=== PATIENT | female | born 1980 | race Two or more races ===

== ENCOUNTER 2017-07-20 12:38 | Inpatient (IN) | payer BC, OTHER ==
[2017-07-20 14:54] VITALS: BMI 33.6
--- NOTE | 2017-07-20 14:55 | HP ---
Admission ROS [facility] Chief Complaint: i am here for rehab from percocet Allergies/Adverse Reactions: Allergies Allergy/AdvReac Type Severity Reaction Status Date / Time No Known Allergies Allergy Verified 12/29/14 13:22 History of Present Illness: this 37 years old female with percocet dependence,seeking rehab,completed detox from 07/14/17 to 07/20/17,at [facility] history of herniated lumbar disc,degenerative disease of right knee bipolar disorder,manic depressive disorder on med nicotine dependence no significant period of sobriety neuropathy , Exam Limitations: No Limitations - Ebola screening Have you traveled outside of the country in the last 21 days: No Have you had contact with anyone from an Ebola affected area: No Do you have a fever: No - Review of Systems Constitutional: No Symptoms Reported EENT: reports: No Symptoms Reported Respiratory: reports: No Symptoms reported Cardiac: reports: No Symptoms Reported GI: reports: No Symptoms Reported : reports: No Symptoms Reported Musculoskeletal: reports: Back Pain Integumentary: reports: No Symptoms Reported Neuro: reports: No Symptoms reported, See HPI, Headache Endocrine: reports: No Symptoms Reported Hematology: reports: No Symptoms Reported Psychiatric: reports: No Sypmtoms Reported, Judgement Intact, Mood/Affect Appropiate, Orientated x3 (bipolar disorder manic depressive) Patient History - Patient Medical History Hx Anemia: Yes (on no medication) Hx Asthma: No Hx Chronic Obstructive Pulmonary Disease (COPD): No Hx Cancer: No Hx Cardiac Disorders: No Hx Congestive Heart Failure: No Hx Hypertension: No Hx Hypercholesterolemia: No Hx Pacemaker: No HX Cerebrovascular Accident: No Hx Seizures: No Hx Dementia: No Hx Diabetes: No Hx Gastrointestinal Disorders: No Hx Liver Disease: No Hx Genitourinary Disorders: No Hx Sexually Transmitted Disorders: No Hx Renal Disease (ESRD): No Hx Thyroid Disease: No Hx Human Immunodeficiency Virus (HIV): No Hx Hepatitis C: No Hx Depression: Yes Hx Suicide Attempt: Yes (x2 overdose) Hx Bipolar Disorder: Yes Hx Schizophrenia: No Other Medical History: manic depressive,no suicidal,no homicidal - Patient Surgical History Past Surgical History: Yes Hx Neurologic Surgery: No Hx Cataract Extraction: No Hx Cardiac Surgery: No Hx Lung Surgery: No Hx Breast Surgery: No Hx Breast Biopsy: No Hx Abdominal Surgery: No Hx Appendectomy: No Hx Cholecystectomy: No Hx Genitourinary Surgery: No Hx Section: No Hx Orthopedic Surgery: Yes (right ankle in 2014 (fall)) Other Surgical History: tubal ligation in 2012 - PPD History Previous Implant?: Yes Documented Results: Negative w/o proof Date: 12/31/14 Results: 0MM PPD to be Administered?: No - Reproductive History Patient is a Female of Child Bearing Age (11 -55 yrs old): Yes Last Menstrual Period: 07/10/17 Patient : No - Smoking Cessation Smoking history: Current every day smoker Have you smoked in the past 12 months: Yes Aproximately how many cigarettes per day: 20 Hx Chewing Tobacco Use: No Initiated information on smoking cessation: Yes 'Breaking Loose' booklet given: 07/20/17 - Substance & Tx. History Hx Alcohol Use: No Hx Substance Use: Yes (percocet) Substance Use Type: Opiates Hx Substance Use Treatment: Yes ([facility] to 07/20/17) - Substances Abused PERCOCET Route: Oral Frequency: Daily Amount used: 10-15 (10/325MG) Age of first use: 22 Date of Last Use: 07/12/17 Family Disease History - Family Disease History Family Disease History: Other: Mother (heroin dependence,) Admission Physical Exam [facility] - Vital Signs Vital Signs: Vital Signs Temperature 98.6 F 07/20/17 14:49 Pulse Rate 87 07/20/17 14:49 Respiratory Rate 16 07/20/17 14:49 Blood Pressure 101/56 07/20/17 14:49 O2 Sat by Pulse Oximetry (%) - Physical General Appearance: Yes: No Apparent Distress HEENTM: Yes: Normal ENT Inspection, KATTY, Pharynx Normal Respiratory: Yes: Lungs Clear, Normal Breath Sounds, No Respiratory Distress Neck: Yes: Within Normal Limits, Supple, Trachea in good position Breast: Yes: Breast Exam Deferred Cardiology: Yes: Within Normal Limits, Regular Rhythm, Regular Rate, S1, S2 Abdominal: Yes: Within Normal Limits, Normal Bowel Sounds, Non Tender, Soft Genitourinary: Yes: Within Normal Limits Back: Yes: Within Normal Limits Musculoskeletal: Yes: Within Normal Limits, full range of Motion Extremities: Yes: Within Normal Limits Neurological: Yes: oxygen tank filler II-XII NML intact, Fully Oriented, Alert, Motor Strength 5/5 Integumentary: Yes: Within Normal Limits Lymphatic: Yes: Within Normal Limits - Diagnostic (1) Opioid dependence Current Visit: Yes Status: Acute (2) Nicotine dependence Current Visit: No Status: Chronic Qualifiers: Nicotine product type: cigarettes Substance use status: unspecified nicotine-induced disorder Qualified Code(s): F17.219 - Nicotine dependence, cigarettes, with unspecified nicotine-induced disorders (3) Herniated lumbar intervertebral disc Current Visit: Yes Status: Acute (4) Bipolar 2 disorder Current Visit: Yes Status: Acute (5) Manic depressive disorder Current Visit: Yes Status: Acute (6) Neuropathy Current Visit: Yes Status: Acute Cleared for Admission [facility] - Detox or Rehab Claeared for Rehab Admission: Yes S Breath Alcohol Content Breath Alcohol Content: 0 Inpatient Rehab Admission - Initial Determination Are CD services needed?: Yes Free of communicable disease: Yes Not in need of hospitalization: Yes - Rehab Admission Criteria Previous failed treatment: Yes Poor recovery environment: Yes Comorbidities: Yes Lacks judgement: No Patient is meeting Inpatient Rehab admission criteria:: Yes
[2017-07-20] MEDS ORDERED: NICOTINE POLACRILEX 2 MG GUM BUC PRN (15:10)
[2017-07-20] MEDS ORDERED: guaiFENesin/D-METHORPHAN HB 10 ML UNIT-DOSE CUPS PO PRN (15:10)
[2017-07-20] MEDS ORDERED: P-EPHED 60MG/TRIPROLIDI 2.5MG TABLET PO PRN (15:10)
[2017-07-20] MEDS ORDERED: LOPERAMIDE HCL 2 MG CAPSULE PO PRN (15:10)
[2017-07-20] MEDS ORDERED: MENTHOL/PHENOL 1 EACH UD MM PRN (15:10)
[2017-07-20] MEDS ORDERED: IBUPROFEN 400 MG TABLET (FP) PO PRN (15:10)
[2017-07-20] MEDS ORDERED: ACETAMINOPHEN 325 MG TABLET (FP) PO PRN (15:10)
[2017-07-20] MEDS ORDERED: MAG HYDROX/AL HYDROX/SIMETH 30 ML UNIT-DOSE CUP PO PRN (15:10)
[2017-07-20] MEDS ORDERED: MAGNESIUM CITRATE 300 ML BOTTLE PO PRN (15:10)
[2017-07-20] MEDS ORDERED: MAGNESIUM HYDROX 2400MG/30ML ORAL SUSPENSION 30 ML CUP PO PRN (15:10)
[2017-07-20] MEDS ORDERED: GABAPENTIN 300 MG CAPSULE (FP) PO ONE (15:30)
[2017-07-20] MEDS: NICOTINE 21 MG/24 HOURS TOPICAL PATCH TD SCH (17:02)
[2017-07-20] MEDS: GABAPENTIN 300 MG CAPSULE (FP) PO SCH (21:39)
[2017-07-20] MEDS: QUEtiapine FUMARATE 300 MG TABLET PO SCH (21:40)
[2017-07-20] MEDS: THIAMINE HCL 100 MG TABLET (FP) PO SCH (21:40)
[2017-07-20] MEDS: LITHIUM CARBONATE 300 MG CAPSULE (FP) PO SCH (21:40)
[2017-07-21] MEDS: LITHIUM CARBONATE 300 MG CAPSULE (FP) PO SCH ×3 (06:42→21:31)
[2017-07-21] MEDS: GABAPENTIN 300 MG CAPSULE (FP) PO SCH ×3 (06:42→21:31)
[2017-07-21] MEDS: hydrOXYzine PAMOATE 50 MG CAPSULE (FP) PO PRN ×2 (06:43→18:27)
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
[2017-07-21] MEDS: PRENATAL VITAMINS W/ FOLIC ACID TABLET (FP) PO SCH (10:06)
[2017-07-21] MEDS: NICOTINE 21 MG/24 HOURS TOPICAL PATCH TD SCH (10:07)
--- NOTE | 2017-07-21 10:19 | EKG ---
Test Reason : Blood Pressure : / mmHG Vent. Rate : 064 BPM Atrial Rate : 064 BPM P-R Int : 172 ms QRS Dur : 088 ms QT Int : 434 ms P-R-T Axes : 035 051 033 degrees QTc Int : 447 ms NORMAL SINUS RHYTHM NORMAL ECG NO PREVIOUS ECGS AVAILABLE Confirmed by SAMMIE MENDIETA MD ([id number]) on 07/21/2017 10:19:00 AM Referred By: Confirmed By:SAMMIE MENDIETA MD
[2017-07-21 15:38] LABS: HEMATOCRIT 36.6 % (32.4-45.2); HEMOGLOBIN 11.9 GM/dL (10.7-15.3); MCH 30.3 pg (25.7-33.7); MCHC 32.6 g/dl (32.0-36.0); MEAN CELL VOLUME 92.9 fl (80-96); MEAN PLT VOLUME 10.9 fl (7.5-11.1); PLATELET COUNT 167 K/MM3 (134-434); RBC 3.94 M/mm3 (3.60-5.2); RDW 15.9 % (11.6-15.6); WHITE BLOOD COUNT 4.6 K/mm3 (4.0-10.0)
[2017-07-21 16:19] LABS: ANION GAP 6 (8-16); BLOOD UREA NITROGEN 11 mg/dL (7-18); CALCIUM 8.9 mg/dL (8.5-10.1); CHLORIDE 105 mmol/L (98-107); CO2 29 mmol/L (21-32); CREATININE 0.6 mg/dL (0.55-1.02); GLUCOSE,RANDOM 104 mg/dL (74-106); POTASSIUM 4.6 mmol/L (3.5-5.1); SGOT/AST 16 U/L (15-37); SGPT/ALT 22 U/L (12-78); SODIUM 140 mmol/L (136-145)
[2017-07-21 16:21] LABS: ALK PHOS 72 U/L (45-117); BILIRUBIN,TOTAL 0.1 mg/dL (0.2-1.0)
[2017-07-21 16:32] LABS: URINE APPEARANCE SLCLOUDY; URINE BILIRUBIN NEGATIVE (<2.0 mg/dL); URINE BLOOD NEGATIVE (NEGATIVE); URINE COLOR LTYELLOW; URINE GLUCOSE (UA) NEGATIVE (NEGATIVE); URINE KETONE NEGATIVE (NEGATIVE); URINE LEUK ESTERASE NEGATIVE (NEGATIVE); URINE NITRITE NEGATIVE (NEGATIVE); URINE PROTEIN NEGATIVE (NEGATIVE); URINE UROBILINOGEN NEGATIVE mg/dL (0.2-1.0)
[2017-07-21] MEDS: DOXEPIN HCL 50 MG CAPSULE PO SCH (21:31)
[2017-07-21] MEDS: QUEtiapine FUMARATE 300 MG TABLET PO SCH (21:31)
[2017-07-21] MEDS: THIAMINE HCL 100 MG TABLET (FP) PO SCH (21:31)
[2017-07-21] MEDS: MELATONIN 5 MG TABLETS PO PRN (21:32)
[2017-07-22] MEDS: LITHIUM CARBONATE 300 MG CAPSULE (FP) PO SCH ×3 (06:53→21:30)
[2017-07-22] MEDS: GABAPENTIN 300 MG CAPSULE (FP) PO SCH ×3 (06:53→21:25)
[2017-07-22] MEDS: hydrOXYzine PAMOATE 50 MG CAPSULE (FP) PO PRN ×2 (06:54→15:09)
[2017-07-22] MEDS: PRENATAL VITAMINS W/ FOLIC ACID TABLET (FP) PO SCH (10:12)
[2017-07-22] MEDS: NICOTINE 21 MG/24 HOURS TOPICAL PATCH TD SCH (10:12)
[2017-07-22] MEDS: DOXEPIN HCL 50 MG CAPSULE PO SCH (21:25)
[2017-07-22] MEDS: QUEtiapine FUMARATE 300 MG TABLET PO SCH (21:25)
[2017-07-22] MEDS: THIAMINE HCL 100 MG TABLET (FP) PO SCH (21:25)
[2017-07-22] MEDS: MELATONIN 5 MG TABLETS PO PRN (21:31)
[2017-07-23] MEDS: LITHIUM CARBONATE 300 MG CAPSULE (FP) PO SCH ×3 (06:53→21:08)
[2017-07-23] MEDS: GABAPENTIN 300 MG CAPSULE (FP) PO SCH ×3 (06:53→21:08)
[2017-07-23] MEDS: hydrOXYzine PAMOATE 50 MG CAPSULE (FP) PO PRN ×3 (08:02→17:00)
[2017-07-23] MEDS ORDERED: IBUPROFEN 400 MG TABLET (FP) PO PRN (09:02)
--- NOTE | 2017-07-23 09:09 | PN ---
"[facility] Progress Note Note: Patient reports prior tx with suboxone for percocet use. Patient completed impatient detox prior to admission to rehab at [facility]. Patient reports feeling anxious and body aches. I-stop reviews and shows the following prescriptions: This report was requested by: Maye Lopez | Reference #: [id number] Others' Prescriptions Patient Name: Debby Black Date: 1980 Address: [address] [place] [address] Sex: Female Rx Written Rx Dispensed Drug Quantity Days Supply Prescriber Name 06/26/2017 06/26/2017 oxycodone-acetaminophen 10-325 mg tab 60 30 Hari Ramirez (PA-C) 05/30/2017 05/30/2017 oxycodone-acetaminophen 10-325 mg tab 60 30 Hari Ramirez (PA-C) 04/28/2017 04/28/2017 oxycodone-acetaminophen 10-325 mg tab 90 30 Hari Ramirez (PA-C) 04/07/2017 04/07/2017 endocet 10-325 mg tablet 70 24 Hari Ramirez (PA-C) 03/13/2017 03/13/2017 endocet 10-325 mg tablet 21 7 Manuel Adams MD 10/17/2016 10/17/2016 oxycodone-acetaminophen 10-325 mg tab 90 30 Ulices, Darby 10/03/2016 10/03/2016 hydrocodone-acetaminophen 5-325 mg tablet 30 10 Ulices, Darby 09/19/2016 09/19/2016 endocet 10-325 mg tablet 90 30 Ulices, Darby 08/22/2016 08/22/2016 endocet 10-325 mg tablet 90 30 Ulices, Darby 08/04/2016 08/04/2016 hydrocodone-acetaminophen 5-325 mg tablet 20 5 Lucy Burk MD 07/25/2016 07/25/2016 oxycodone-acetaminophen 10-325 mg tab 90 30 Lurdes Weller MD Vital Signs Temperature 97.3 F L 07/23/17 07:35 Pulse Rate 80 07/23/17 07:35 Respiratory Rate 18 07/23/17 07:35 Blood Pressure 94/60 07/23/17 07:35 O2 Sat by Pulse Oximetry (%) Laboratory Last Values WBC 4.6 K/mm3 (4.0-10.0) 07/21/17 08:45 RBC 3.94 M/mm3 (3.60-5.2) 07/21/17 08:45 Hgb 11.9 GM/dL (10.7-15.3) D 07/21/17 08:45 Hct 36.6 % (32.4-45.2) D 07/21/17 08:45 MCV 92.9 fl (80-96) 07/21/17 08:45 MCH 30.3 pg (25.7-33.7) 07/21/17 08:45 MCHC 32.6 g/dl (32.0-36.0) 07/21/17 08:45 RDW 15.9 % (11.6-15.6) H 07/21/17 08:45 Plt Count 167 K/MM3 (134-434) D 07/21/17 08:45 MPV 10.9 fl (7.5-11.1) 07/21/17 08:45 Sodium 140 mmol/L (136-145) 07/21/17 08:45 Potassium 4.6 mmol/L (3.5-5.1) 07/21/17 08:45 Chloride 105 mmol/L (98-107) 07/21/17 08:45 Carbon Dioxide 29 mmol/L (21-32) 07/21/17 08:45 Anion Gap 6 (8-16) L 07/21/17 08:45 BUN 11 mg/dL (7-18) 07/21/17 08:45 Creatinine 0.6 mg/dL (0.55-1.02) 07/21/17 08:45 Creat Clearance w eGFR > 60 (>60) 07/21/17 08:45 Random Glucose 104 mg/dL (74-106) 07/21/17 08:45 Calcium 8.9 mg/dL (8.5-10.1) 07/21/17 08:45 Total Bilirubin 0.1 mg/dL (0.2-1.0) L D 07/21/17 08:45 AST 16 U/L (15-37) 07/21/17 08:45 ALT 22 U/L (12-78) 07/21/17 08:45 Alkaline Phosphatase 72 U/L (45-117) 07/21/17 08:45 Total Protein 6.0 g/dl (6.4-8.2) L 07/21/17 08:45 Albumin 3.0 g/dl (3.4-5.0) L 07/21/17 08:45 Urine Color Ltyellow 07/21/17 08:45 Urine Appearance Slcloudy 07/21/17 08:45 Urine pH 8.0 (5.0-8.0) D 07/21/17 08:45 Ur Specific [place] 1.011 (1.001-1.035) 07/21/17 08:45 Urine Protein Negative (NEGATIVE) 07/21/17 08:45 Urine Glucose (UA) Negative (NEGATIVE) 07/21/17 08:45 Urine Ketones Negative (NEGATIVE) 07/21/17 08:45 Urine Blood Negative (NEGATIVE) 07/21/17 08:45 Urine Nitrite Negative (NEGATIVE) 07/21/17 08:45 Urine Bilirubin Negative (<2.0 mg/dL) 07/21/17 08:45 Urine Urobilinogen Negative mg/dL (0.2-1.0) 07/21/17 08:45 Ur Leukocyte Esterase Negative (NEGATIVE) 07/21/17 08:45 [place] 0.7 MEQ/L (0.6-1.2) 07/22/17 08:00 RPR Titer Nonreactive (NONREACTIVE) 07/21/17 08:45 v/s stable within normal limits Patient AOx3, no distress, anxious no adventitious breath sounds + back pain and body aches Full, ROM ambulating in the unit - body aches & back pain v/s stable no acute withdrawal sx Plan: Ibuprofen 600 mg q8h Flexeril 5mg PRN for back pain and body aches Increase fluids continue to monitor"
[2017-07-23] MEDS: PRENATAL VITAMINS W/ FOLIC ACID TABLET (FP) PO SCH (10:35)
[2017-07-23] MEDS: NICOTINE 21 MG/24 HOURS TOPICAL PATCH TD SCH (10:35)
[2017-07-23] MEDS: IBUPROFEN 600 MG TABLET (FP) PO PRN (10:58)
[2017-07-23] MEDS: CYCLOBENZAPRINE HCL 5 MG TABLET PO SCH ×2 (13:19→21:08)
[2017-07-23] MEDS: THIAMINE HCL 100 MG TABLET (FP) PO SCH (21:08)
[2017-07-23] MEDS: QUEtiapine FUMARATE 300 MG TABLET PO SCH (21:08)
[2017-07-23] MEDS: DOXEPIN HCL 50 MG CAPSULE PO SCH (21:08)
[2017-07-23] MEDS: MELATONIN 5 MG TABLETS PO PRN (21:09)
[2017-07-24] MEDS: GABAPENTIN 300 MG CAPSULE (FP) PO SCH ×3 (06:31→21:50)
[2017-07-24] MEDS: LITHIUM CARBONATE 300 MG CAPSULE (FP) PO SCH ×3 (06:31→21:49)
[2017-07-24] MEDS: CYCLOBENZAPRINE HCL 5 MG TABLET PO SCH ×3 (06:31→21:50)
[2017-07-24] MEDS: hydrOXYzine PAMOATE 50 MG CAPSULE (FP) PO PRN ×3 (06:32→17:50)
[2017-07-24] MEDS: IBUPROFEN 600 MG TABLET (FP) PO PRN (06:33)
[2017-07-24] MEDS: PRENATAL VITAMINS W/ FOLIC ACID TABLET (FP) PO SCH (10:52)
[2017-07-24] MEDS: NICOTINE 21 MG/24 HOURS TOPICAL PATCH TD SCH (10:52)
[2017-07-24] MEDS ORDERED: QUEtiapine FUMARATE 25 MG TABLET (FP) PO ONE (15:40)
--- NOTE | 2017-07-24 15:43 | PN ---
Psychiatric Progress Note Vital Signs: Vital Signs Period Temp Pulse Resp BP Sys/Hendrickson Pulse Ox Last 24 Hr 97.3 F 78 18-18 96/66 Date of Session: 07/24/17 Chief Complaint:: Keenan still nervious,withdrawing." HPI: Opioid,Cannabis dependence comorbid with Bipolar II disorder. ROS: Disk disease,neuropathy. Current Medications: Active Medications Generic Name Dose Route Start Last Admin Trade Name Freq PRN Reason Stop Dose Admin Acetaminophen 650 mg 07/20/17 15:10 Tylenol - PO Q4H PRN FEVER Al Hydroxide/Mg Hydroxide 30 ml 07/20/17 15:10 Mylanta Oral Suspension - PO Q6H PRN DYSPEPSIA Cyclobenzaprine HCl 5 mg 07/23/17 14:00 07/24/17 13:23 Cyclobenzaprine Hcl PO 5 mg TID RADHA Administration Doxepin HCl 50 mg 07/21/17 22:00 07/23/17 21:08 Sinequan - PO 50 mg HS RADHA Administration Eucalyptus/Menthol/Phenol/Sorbitol 1 each 07/20/17 15:10 Cepastat Lozenge - MM Q4H PRN SORE THROAT Gabapentin 600 mg 07/20/17 22:00 07/24/17 13:23 Neurontin - PO 600 mg TID RADHA Administration Guaifenesin 10 ml 07/20/17 15:10 Robitussin Dm - PO Q6H PRN COUGH Hydroxyzine Pamoate 50 mg 07/20/17 15:10 07/24/17 10:53 Vistaril - PO 50 mg Q4H PRN Administration AGITATION Ibuprofen 600 mg 07/23/17 10:48 07/24/17 06:33 Motrin - PO 600 mg Q8H PRN Administration Pain level 4-6 [place] Carbonate 300 mg 07/20/17 22:00 07/24/17 13:23 Eskalith - PO 300 mg TID RADHA Administration Loperamide HCl 4 mg 07/20/17 15:10 Imodium - PO Q6H PRN DIARRHEA Magnesium Citrate 300 ml 07/20/17 15:10 Citroma - PO Q48H PRN CONSTIPATION Magnesium Hydroxide 30 ml 07/20/17 15:10 Milk Of Magnesia - PO DAILY PRN CONSTIPATION Melatonin 5 mg 07/20/17 22:00 07/23/17 21:09 Melatonin PO 5 mg HS PRN Administration INSOMNIA Nicotine 21 mg 07/20/17 15:30 07/24/17 10:52 Nicoderm Patch - TD Not Given DAILY RADHA Nicotine Polacrilex 2 mg 07/20/17 15:10 Nicorette Gum - BUC Q2H PRN NICOTINE REPLACEMENT RX Multivit/Folic Acid/Iron 1 tab 07/21/17 10:00 07/24/17 10:52 Vitamins (Sjr) - PO 1 tab DAILY RADHA Administration Pseudoephedrine/Triprolidine 1 combo 07/20/17 15:10 Actifed - PO TID PRN NASAL CONGESTION Quetiapine Fumarate 300 mg 07/20/17 22:00 07/23/17 21:08 Seroquel - PO 300 mg HS RADHA Administration Quetiapine Fumarate 25 mg 07/24/17 18:00 Seroquel - PO TID@1000,1400,1800 RADHA Quetiapine Fumarate 25 mg 07/24/17 15:40 Seroquel - PO 07/24/17 15:41 ONCE ONE Thiamine HCl 100 mg 07/20/17 22:00 07/23/17 21:08 Vitamin B1 - PO 100 mg HS RADHA Administration Current Side Effect: No Lab tests ordered: No Lab tests reviewed: Yes Provider note:: Chart was revuewed,treatment plan incliding medication management has been discussed with the patient.She addressed ongoing nxity,mood instability,restlessness,still some withdrawal.properties of Seroquel has been discussed with thepatinet including side effects,benefits and dose adjustment.Seroquel 25 mg po tid will be started today.Continue Seroquel 300 mg po hs. Supportive therapy provided. Total face to face time:: 30 Mental Status Exam - Mental Status Exam Alert and Oriented to: Time, Place, Person Cognitive Function: Grossly Intact Patient Appearance: Well Groomed Mood: Anxious, Apprehensive Affect: Mood Congruent, Labile Patient Behavior: Restless, Cooperative Speech Pattern: Clear Voice Loudness: Normal Thought Process: Goal Oriented Thought Disorder: Not Present Hallucinations: Denies Suicidal Ideation: Denies Homicidal Ideation: Denies Insight/Judgement: Fair Sleep: Difficulty falling asleep Appetite: Good Muscle strength/Tone: Normal Gait/Station: Normal Psychiatric Treatment Plan - Problem List (1) Bipolar 2 disorder Current Visit: Yes (2) Herniated lumbar intervertebral disc Current Visit: Yes (3) Neuropathy Current Visit: Yes (4) Opioid dependence Current Visit: Yes (5) Cannabis dependence Current Visit: Yes Comment: . (6) Nicotine dependence Current Visit: Yes Qualifiers: Nicotine product type: cigarettes Substance use status: unspecified nicotine-induced disorder Qualified Code(s): F17.219 - Nicotine dependence, cigarettes, with unspecified nicotine-induced disorders
[2017-07-24] MEDS: QUEtiapine FUMARATE 25 MG TABLET (FP) PO SCH (17:50)
[2017-07-24] MEDS: THIAMINE HCL 100 MG TABLET (FP) PO SCH (21:49)
[2017-07-24] MEDS: DOXEPIN HCL 50 MG CAPSULE PO SCH (21:49)
[2017-07-24] MEDS: QUEtiapine FUMARATE 300 MG TABLET PO SCH (21:50)
[2017-07-24] MEDS: MELATONIN 5 MG TABLETS PO PRN (21:51)
[2017-07-25] MEDS: GABAPENTIN 300 MG CAPSULE (FP) PO SCH ×3 (06:54→21:38)
[2017-07-25] MEDS: CYCLOBENZAPRINE HCL 5 MG TABLET PO SCH ×2 (06:54→13:03)
[2017-07-25] MEDS: LITHIUM CARBONATE 300 MG CAPSULE (FP) PO SCH ×3 (06:54→21:38)
[2017-07-25] MEDS: hydrOXYzine PAMOATE 50 MG CAPSULE (FP) PO PRN ×3 (06:55→18:05)
[2017-07-25] MEDS: PRENATAL VITAMINS W/ FOLIC ACID TABLET (FP) PO SCH (10:31)
[2017-07-25] MEDS: QUEtiapine FUMARATE 25 MG TABLET (FP) PO SCH ×3 (10:31→18:04)
[2017-07-25] MEDS: NICOTINE 21 MG/24 HOURS TOPICAL PATCH TD SCH (10:31)
[2017-07-25] MEDS ORDERED: COLLOIDAL OATMEAL 1 BAR EACH TP PRN (14:14)
[2017-07-25] MEDS ORDERED: IBUPROFEN 400 MG TABLET (FP) PO PRN (14:24)
--- NOTE | 2017-07-25 14:29 | PN ---
[facility] Progress Note Note: Patient reports hx of chronic low back pain radiates down both lower extremities , DJD, and multiple herniated discs, reports while outpatient was treated with lyrica for pain. As per patient she requested to start suboxone at this time d/ t withdrawal symptoms. Vital Signs Temperature 97.6 F 07/25/17 07:18 Pulse Rate 88 07/25/17 07:18 Respiratory Rate 18 07/25/17 07:18 Blood Pressure 109/75 07/25/17 07:18 O2 Sat by Pulse Oximetry (%) Laboratory Last Values WBC 4.6 K/mm3 (4.0-10.0) 07/21/17 08:45 RBC 3.94 M/mm3 (3.60-5.2) 07/21/17 08:45 Hgb 11.9 GM/dL (10.7-15.3) D 07/21/17 08:45 Hct 36.6 % (32.4-45.2) D 07/21/17 08:45 MCV 92.9 fl (80-96) 07/21/17 08:45 MCH 30.3 pg (25.7-33.7) 07/21/17 08:45 MCHC 32.6 g/dl (32.0-36.0) 07/21/17 08:45 RDW 15.9 % (11.6-15.6) H 07/21/17 08:45 Plt Count 167 K/MM3 (134-434) D 07/21/17 08:45 MPV 10.9 fl (7.5-11.1) 07/21/17 08:45 Sodium 140 mmol/L (136-145) 07/21/17 08:45 Potassium 4.6 mmol/L (3.5-5.1) 07/21/17 08:45 Chloride 105 mmol/L (98-107) 07/21/17 08:45 Carbon Dioxide 29 mmol/L (21-32) 07/21/17 08:45 Anion Gap 6 (8-16) L 07/21/17 08:45 BUN 11 mg/dL (7-18) 07/21/17 08:45 Creatinine 0.6 mg/dL (0.55-1.02) 07/21/17 08:45 Creat Clearance w eGFR > 60 (>60) 07/21/17 08:45 Random Glucose 104 mg/dL (74-106) 07/21/17 08:45 Calcium 8.9 mg/dL (8.5-10.1) 07/21/17 08:45 Total Bilirubin 0.1 mg/dL (0.2-1.0) L D 07/21/17 08:45 AST 16 U/L (15-37) 07/21/17 08:45 ALT 22 U/L (12-78) 07/21/17 08:45 Alkaline Phosphatase 72 U/L (45-117) 07/21/17 08:45 Total Protein 6.0 g/dl (6.4-8.2) L 07/21/17 08:45 Albumin 3.0 g/dl (3.4-5.0) L 07/21/17 08:45 Urine Color Ltyellow 07/21/17 08:45 Urine Appearance Slcloudy 07/21/17 08:45 Urine pH 8.0 (5.0-8.0) D 07/21/17 08:45 Ur Specific [place] 1.011 (1.001-1.035) 07/21/17 08:45 Urine Protein Negative (NEGATIVE) 07/21/17 08:45 Urine Glucose (UA) Negative (NEGATIVE) 07/21/17 08:45 Urine Ketones Negative (NEGATIVE) 07/21/17 08:45 Urine Blood Negative (NEGATIVE) 07/21/17 08:45 Urine Nitrite Negative (NEGATIVE) 07/21/17 08:45 Urine Bilirubin Negative (<2.0 mg/dL) 07/21/17 08:45 Urine Urobilinogen Negative mg/dL (0.2-1.0) 07/21/17 08:45 Ur Leukocyte Esterase Negative (NEGATIVE) 07/21/17 08:45 [place] 0.7 MEQ/L (0.6-1.2) 07/22/17 08:00 RPR Titer Nonreactive (NONREACTIVE) 07/21/17 08:45 A/P Patient AOx3, no apparent distress, no diaphoresis no jvd no adventitious breath sounds + back pain negative neuro sympts full ROM, ambulating in the unit - low back pain with sciatica I-stop reviewed no hx of lyrica prescribe. v/s table no s/s of acute withdrawal. Patient to follow up with counselor for aftercare and link to Soboxone tx program. continue neurontin ibuprofen 800mg TID lidocaine patch low back TID fexeril 10 mg TID Patient to follow with primary care provider upon discharge continue to monitor
[2017-07-25] MEDS: LIDOCAINE 5% TOPICAL PATCH TP SCH (15:02)
[2017-07-25] MEDS: DOXEPIN HCL 50 MG CAPSULE PO SCH (21:38)
[2017-07-25] MEDS: THIAMINE HCL 100 MG TABLET (FP) PO SCH (21:38)
[2017-07-25] MEDS: QUEtiapine FUMARATE 300 MG TABLET PO SCH (21:39)
[2017-07-25] MEDS ORDERED: LIDOCAINE PATCH REMOVAL MC SCH (22:00)
[2017-07-26] MEDS: LITHIUM CARBONATE 300 MG CAPSULE (FP) PO SCH (06:45)
[2017-07-26] MEDS: GABAPENTIN 300 MG CAPSULE (FP) PO SCH (06:45)
[2017-07-26] MEDS: hydrOXYzine PAMOATE 50 MG CAPSULE (FP) PO PRN (06:45)
[2017-07-26 07:00] VITALS: BP 117/72; PULSE 89; TEMP 97.8
--- NOTE | 2017-07-26 09:16 | PN ---
Psychiatric Progress Note Vital Signs: Vital Signs Period Temp Pulse Resp BP Sys/Hendrickson Pulse Ox Last 24 Hr 97.8 F 89 18-18 117/72 Date of Session: 07/26/17 Chief Complaint:: Discharge visit HPI: Patient addressed Opioid and Cannabis dependence comorbid with Bipolar disorder. ROS: Disk disease,Neuropathy. Current Medications: Active Medications Generic Name Dose Route Start Last Admin Trade Name Freq PRN Reason Stop Dose Admin Acetaminophen 650 mg 07/20/17 15:10 Tylenol - PO Q4H PRN FEVER Al Hydroxide/Mg Hydroxide 30 ml 07/20/17 15:10 Mylanta Oral Suspension - PO Q6H PRN DYSPEPSIA Colloidal Oatmeal 1 applic 07/25/17 14:14 07/25/17 15:02 [place] Soap - TP 1 bar DAILY PRN Administration HYGEINE Doxepin HCl 50 mg 07/21/17 22:00 07/25/17 21:38 Sinequan - PO 50 mg HS RADHA Administration Eucalyptus/Menthol/Phenol/Sorbitol 1 each 07/20/17 15:10 Cepastat Lozenge - MM Q4H PRN SORE THROAT Gabapentin 600 mg 07/20/17 22:00 07/26/17 06:45 Neurontin - PO 600 mg TID RADHA Administration Guaifenesin 10 ml 07/20/17 15:10 Robitussin Dm - PO Q6H PRN COUGH Hydroxyzine Pamoate 50 mg 07/20/17 15:10 07/26/17 06:45 Vistaril - PO 50 mg Q4H PRN Administration AGITATION Ibuprofen 800 mg 07/25/17 14:24 Motrin - PO Q8H PRN PAIN LEVEL 7 - 10 Lidocaine 1 patch 07/25/17 14:30 07/25/17 15:02 Lidoderm Patch - TP 1 patch DAILY RADHA Administration [place] Carbonate 300 mg 07/20/17 22:00 07/26/17 06:45 Eskalith - PO 300 mg TID RADHA Administration Loperamide HCl 4 mg 07/20/17 15:10 Imodium - PO Q6H PRN DIARRHEA Magnesium Citrate 300 ml 07/20/17 15:10 Citroma - PO Q48H PRN CONSTIPATION Magnesium Hydroxide 30 ml 07/20/17 15:10 Milk Of Magnesia - PO DAILY PRN CONSTIPATION Melatonin 5 mg 07/20/17 22:00 07/24/17 21:51 Melatonin PO 5 mg HS PRN Administration INSOMNIA Miscellaneous 1 each 07/25/17 22:00 07/25/17 21:40 Lidoderm Patch Removal MC 1 each DAILY@2200 RADHA Administration Nicotine 21 mg 07/20/17 15:30 07/25/17 10:31 Nicoderm Patch - TD Not Given DAILY RADHA Nicotine Polacrilex 2 mg 07/20/17 15:10 Nicorette Gum - BUC Q2H PRN NICOTINE REPLACEMENT RX Multivit/Folic Acid/Iron 1 tab 07/21/17 10:00 07/25/17 10:31 Vitamins (Sjr) - PO 1 tab DAILY RADHA Administration Pseudoephedrine/Triprolidine 1 combo 07/20/17 15:10 Actifed - PO TID PRN NASAL CONGESTION Quetiapine Fumarate 300 mg 07/20/17 22:00 07/25/17 21:39 Seroquel - PO 300 mg HS RADAH Administration Quetiapine Fumarate 25 mg 07/24/17 18:00 07/25/17 18:04 Seroquel - PO 25 mg TID@1000,1400,1800 RADHA Administration Thiamine HCl 100 mg 07/20/17 22:00 07/25/17 21:38 Vitamin B1 - PO 100 mg HS RADHA Administration Current Side Effect: No Lab tests ordered: No Lab tests reviewed: Yes Provider note:: Patient completed this program today (early managed care discharge).She has partially met her treatment goals and will continue to address her issues on outpatient basis at [facility].Patient reports finding that current medications help to cope with mood instability, anxiety,depression.Scripts for 30 days provided.Supportive therapy provided focusing on relapse prevention. Patient is stable for discharge today. Total face to face time:: 30 Mental Status Exam - Mental Status Exam Alert and Oriented to: Time, Place, Person Cognitive Function: Grossly Intact Patient Appearance: Well Groomed Mood: Euthymic Affect: Appropriate, Mood Congruent Patient Behavior: Cooperative Speech Pattern: Clear Voice Loudness: Normal Thought Process: Goal Oriented Thought Disorder: Not Present Hallucinations: Denies Suicidal Ideation: Denies Homicidal Ideation: Denies Insight/Judgement: Fair Sleep: Fair Appetite: Good Muscle strength/Tone: Normal Gait/Station: Normal Psychiatric Treatment Plan - Problem List (1) Bipolar 2 disorder Current Visit: Yes (2) Herniated lumbar intervertebral disc Current Visit: Yes (3) Neuropathy Current Visit: Yes (4) Opioid dependence Current Visit: Yes (5) Cannabis dependence Current Visit: Yes Comment: . (6) Nicotine dependence Current Visit: Yes Qualifiers: Nicotine product type: cigarettes Substance use status: unspecified nicotine-induced disorder Qualified Code(s): F17.219 - Nicotine dependence, cigarettes, with unspecified nicotine-induced disorders
[2017-07-26] MEDS: LIDOCAINE 5% TOPICAL PATCH TP SCH (09:40)
[2017-07-26] MEDS: QUEtiapine FUMARATE 25 MG TABLET (FP) PO SCH (09:40)
[2017-07-26] MEDS: PRENATAL VITAMINS W/ FOLIC ACID TABLET (FP) PO SCH (09:40)
[2017-07-26] MEDS: NICOTINE 21 MG/24 HOURS TOPICAL PATCH TD SCH (09:40)
== END 2017-07-26 09:16 | disposition home or self-care (01) | DRG 895 ==
LOC: YASAS 12:38 → Y3E 15:23
PROVIDERS: ADMIT Psychiatry & Neurology Psychiatry; ATTEND Psychiatry & Neurology Psychiatry
PROC: HZ42ZZZ Group Counseling for Substance Abuse Treatment, Cognitive-Behavioral (ICD-10-PCS; principal; 2017-07-19)
DX: F11.20 Opioid dependence, uncomplicated (principal); F31.81 Bipolar II disorder; F12.20 Cannabis dependence, uncomplicated; F17.219 Nicotine dependence, cigarettes, with unspecified nicotine-induced disorders; F32.9 Major depressive disorder, single episode, unspecified; G62.9 Polyneuropathy, unspecified; M51.26 Other intervertebral disc displacement, lumbar region; Z91.5 Personal history of self-harm
CPT/HCPCS: 36415; 80053; 80178; 81003; 85027; 86593; 93005; 93010